=== PATIENT | female | born 1950 | race Caucasian/White ===

== ENCOUNTER 2016-10-06 12:57 | Emergency (ER) | payer BC ==
[2016-10-06 13:46] VITALS: BP 93/54
--- NOTE | 2016-10-06 14:04 | EDM.PDOC ---
ED HPI Trauma - General Chief Complaint: Lower Extremity Injury/Pain Stated Complaint: L knee swelling Time Seen by Provider: 10/06/16 13:50 Source: Reports: Patient, Family History Limitations: Reports: No limitations - History of Present Illness INITIAL COMMENTS - FREE TEXT/NARRATIVE: HISTORY AND PHYSICAL: History of present illness: [Patient is brought to the emergency room by her daughter today. She had left total knee replacement on October 01 at [facility] by Dr. Juan Redd. Was discharged from hospital on 10/02/16 per patient report. Prior to discharge she was told that she had a DVT just above her L medial knee, and was started on Eliquis. She felt that she had been doing well since discharge from the hospital until she developed increased pain to her L knee and increased swelling to her left lower leg. She reports that she has a half-dollar size wound to her left knee just lateral to her incision site. She does not know where this wound came from and it was not present when she went to the hospital on Friday. She reports that it has been present and oozing blood since her surgery. She denies any increased pain to her incision site or drainage from the site. She's been resting her knee is much as possible and taking her medications as prescribed. Overall she felt that she was improving until this morning when she began to feel worse. She denies fever and chills, chest pain shortness of breath and difficulty breathing. No abdominal pain nausea or vomiting. No cough. No other complaints or concerns. Review of systems: As per history of present illness and below otherwise all systems reviewed and negative. Past medical history: As per history of present illness and as reviewed below otherwise noncontributory. Surgical history: As per history of present illness and as reviewed below otherwise noncontributory. Social history: No reported history of drug or alcohol abuse. Family history: As per history of present illness and as reviewed below otherwise noncontributory. Physical exam: HEENT: Atraumatic, normocephalic. Oral mucous membranes are pink and moist, throat clear. neck supple, nontender. Lungs: Clear to auscultation, breath sounds equal bilaterally. Heart: S1S2, regular rate rhythm, no murmur, clicks, rubs. Abdomen: Soft, nondistended, nontender. Negative for masses or hepatosplenomegaly. Pelvis: Stable nontender. Genitourinary: Deferred. Rectal: Deferred. Extremities: Left knee incision site appears consistent with left total knee replacement. It is free from erythema and drainage. Has swelling to her lower leg. No tenderness with palpation to left calf posterior knee or lower leg. No pitting edema. Half-dollar size circular open wound to left lateral knee, just superior to incision. Mildly tender with palpation over her distal quadricep. Neurovascular unremarkable. Neuro: Awake, alert, oriented. Cranial nerves II through XII unremarkable. Exam nonfocal. Diagnostics: [CBC, CMP, venous Doppler ultrasound of left lower extremity, left knee x-ray, lactic acid, CRP, ESR, blood cultures, PT/INR] Therapeutics: [Bacitracin topical, ceftriaxone 1 g IM] Impression: [Left knee hematoma Left knee pain Status post left total knee replacement] Plan: [Left knee x-ray appears unremarkable. Venous Doppler ultrasound is negative for DVT. White count is normal CRP is mildly elevated and sedimentation rate is 40. Discussed patient's condition and lab results with Dr. Vazquez who is covering for Dr Juan Redd this weekend. He recommends stopping eloquence since no DVT is present, and states that symptoms are most consistent with the development of a hematoma. He does not feel that antibiotics are indicated at this time. Patient is instructed to call Dr. Redd tomorrow and notify him of ER visit and results. She's given 1 g of Rocephin IM in the ER. Wound is dressed with bacitracin and a fresh bandage. Rest, ice, elevation. She is in agreement with today's plan. All of her questions are answered and concerns are addressed. ] Definitive disposition and diagnosis as appropriate pending reevaluation and review of above. Allergies/ADRs: Allergies acetaminophen [From Percocet] Allergy (Verified 10/06/16 14:45) Vomiting clarithromycin [From Biaxin] Allergy (Verified 10/06/16 14:45) Vomiting oxycodone [From Percocet] Allergy (Verified 10/06/16 14:45) Vomiting propoxyphene [From Darvocet-N] Allergy (Verified 10/06/16 14:45) Vomiting Home Medications: Ambulatory Orders Aspirin 81 mg PO DAILY 10/06/16 [Confirmed 10/06/16] Bifidobacterium Infantis [Align] 10.5 mg PO DAILY 10/06/16 [Confirmed 10/06/16] Biotin 2,500 mcg PO BID 10/06/16 [Confirmed 10/06/16] Cholecalciferol (Vitamin D3) [Vitamin D3] 2,000 units PO BID 10/06/16 [ Confirmed 10/06/16] Clopidogrel [Plavix] 75 mg PO DAILY 10/06/16 [Confirmed 10/06/16] Cyanocobalamin (Vitamin B-12) [Vitamin B12] 2,500 mcg PO BID 10/06/16 [ Confirmed 10/06/16] Ferrous Sulfate 325 mg PO DAILY 10/06/16 [Confirmed 10/06/16] Fesoterodine Fumarate [Toviaz] 4 mg PO DAILY 10/06/16 [Confirmed 10/06/16] Folic Acid 0.8 mg PO DAILY 10/06/16 [Confirmed 10/06/16] Furosemide [Lasix] 20 mg PO DAILY 10/06/16 [Confirmed 10/06/16] Hydrocodone/Acetaminophen [Hydrocodon-Acetaminophen 5-325] 1 tab PO TID [Confirmed 10/06/16] Levothyroxine 112 mcg PO ACBREAKFAST 10/06/16 [Confirmed 10/06/16] [place] Carbonate 150 mg PO DAILY 10/06/16 [Confirmed 10/06/16] [place] Carbonate 300 mg PO BEDTIME 10/06/16 [Confirmed 10/06/16] Lutein 6 mg PO DAILY 10/06/16 [Confirmed 10/06/16] Multivit-Min/Folic Acid/Biotin [Women Multivit W-Biotin Gummy] 1 tab PO BID 03/16 [Confirmed 10/06/16] Omeprazole 40 mg PO BIDAC 10/06/16 [Confirmed 10/06/16] Oxybutynin [Oxybutynin ER] 5 mg PO DAILY 10/06/16 [Confirmed 10/06/16] PARoxetine HCl [Paroxetine ER] 25 mg PO DAILY 10/06/16 [Confirmed 10/06/16] Potassium Chloride 10 meq PO DAILY 10/06/16 [Confirmed 10/06/16] Pregabalin [Lyrica] 50 mg PO BID 10/06/16 [Confirmed 10/06/16] Temazepam 30 mg PO BEDTIME PRN 10/06/16 [Confirmed 10/06/16] Topiramate 50 mg PO DAILY 10/06/16 [Confirmed 10/06/16] lamoTRIgine [Lamotrigine] 100 mg PO BID 10/06/16 [Confirmed 10/06/16] risperiDONE [Risperidone] 0.5 mg PO BEDTIME 10/06/16 [Confirmed 10/06/16] Past Medical History Cardiovascular History: Reports: Pacemaker Genitourinary History: Reports: Other (see below) Other Genitourinary History: Chronic renal disease [employer] History: Reports: Psychiatric History: Reports: Bipolar Endocrine/Metabolic History: Reports: Hypothyroidism - Past Surgical History HEENT Surgical History: Reports: Adenoidectomy, Tonsillectomy GI Surgical History: Reports: Cholecystectomy, Other (see below) Other GI Surgeries/Procedures: gastric sx Female Surgical History: Reports: Other (see below) Other Female Surgeries/Procedures: bladder surgery Musculoskeletal Surgical History: Reports: Knee replacement Social & Family History - Family History Family Medical History: Noncontributory - Tobacco Use Smoking Status *Q: Never Smoker - Caffeine Use Caffeine Use: Reports: Tea - Recreational Drug Use Recreational Drug Use: No Review of Systems - Review of Systems Review Of Systems: ROS reveals no pertinent complaints other than HPI. Trauma Exam - Physical Exam Exam: See Below Course - Vital Signs Last Recorded V/S: Last Vital Signs Temp 98.8 F 10/06/16 13:44 Pulse 70 10/06/16 13:44 Resp 18 10/06/16 13:44 BP 93/54 L 10/06/16 13:44 Pulse Ox 100 10/06/16 13:44 - Orders/Labs/Meds Orders: Active Orders 24 hr Category Date Time Status Knee 3V Lt [CR] Stat Exams 10/06/16 14:11 Taken Venous Doppler Lwr Ext Lt [US] Stat Exams 10/06/16 14:10 Taken CULTURE BLOOD [BC] Stat Lab 10/06/16 14:24 Results CULTURE BLOOD [BC] Stat Lab 10/06/16 14:29 Received Blood Culture x2 Reflex Set [OM.PC] Stat Oth 10/06/16 14:11 Ordered Labs: Laboratory Tests 10/06/16 10/06/16 10/06/16 Range/Units 14:04 14:04 14:04 WBC 4.49 (4.0-11.0) K/uL RBC 2.79 L (4.30-5.90) M/uL Hgb 8.9 L (12.0-16.0) g/dL Hct 28.3 L (36.0-46.0) % MCV 101.4 H (80.0-98.0) fL MCH 31.9 (27.0-32.0) pg MCHC 31.4 (31.0-37.0) g/dL RDW Std Deviation 57.9 (28.0-62.0) fl RDW Coeff of Alyse 16 H (11.0-15.0) % Plt Count 158 (150-400) K/uL MPV 9.20 (7.40-12.00) fL Neut % (Auto) 71.5 (48.0-80.0) % Lymph % (Auto) 16.9 (16.0-40.0) % [place] % (Auto) 8.7 (0.0-15.0) % Eos % (Auto) 2.7 (0.0-7.0) % Baso % (Auto) 0.2 (0.0-1.5) % Neut # (Auto) 3.2 (1.4-5.7) K/uL Lymph # (Auto) 0.8 (0.6-2.4) K/uL [place] # (Auto) 0.4 (0.0-0.8) K/uL Eos # (Auto) 0.1 (0.0-0.7) K/uL Baso # (Auto) 0.0 (0.0-0.1) K/uL Nucleated RBC % 0.0 /100WBC Nucleated RBCs # 0 K/uL ESR 40 H (0-29) mm/hr INR (0.86-1.11) Lactate (0.20-2.00) mmol/L Sodium 141 (136-146) mmol/L Potassium 3.5 (3.5-5.1) mmol/L Chloride 111 H (98-110) mmol/L Carbon Dioxide 20 L (21-31) mmol/L BUN 39 H (6.0-23.0) mg/dL Creatinine 1.2 (0.6-1.5) mg/dL Est Cr Clr Drug Dosing 33.86 mL/min Estimated GFR (MDRD) 44.7 ml/min Glucose 67 (60-110) mg/dL Calcium 9.0 (8.8-10.8) mg/dL Total Bilirubin 0.4 (0.1-1.5) mg/dL AST 22 (5-40) IU/L ALT 10 (8-54) IU/L Alkaline Phosphatase 68 (40-150) C-Reactive Protein (0.0-0.5) mg/dL Total Protein 6.4 (6.0-8.0) g/dL Albumin 3.6 (3.4-4.8) g/dL Globulin 2.8 (2.0-3.5) g/dL Albumin/Globulin Ratio 1.3 (1.3-2.8) 10/06/16 10/06/16 10/06/16 Range/Units 14:04 14:04 14:04 WBC (4.0-11.0) K/uL RBC (4.30-5.90) M/uL Hgb (12.0-16.0) g/dL Hct (36.0-46.0) % MCV (80.0-98.0) fL MCH (27.0-32.0) pg MCHC (31.0-37.0) g/dL RDW Std Deviation (28.0-62.0) fl RDW Coeff of Alyse (11.0-15.0) % Plt Count (150-400) K/uL MPV (7.40-12.00) fL Neut % (Auto) (48.0-80.0) % Lymph % (Auto) (16.0-40.0) % [place] % (Auto) (0.0-15.0) % Eos % (Auto) (0.0-7.0) % Baso % (Auto) (0.0-1.5) % Neut # (Auto) (1.4-5.7) K/uL Lymph # (Auto) (0.6-2.4) K/uL [place] # (Auto) (0.0-0.8) K/uL Eos # (Auto) (0.0-0.7) K/uL Baso # (Auto) (0.0-0.1) K/uL Nucleated RBC % /100WBC Nucleated RBCs # K/uL ESR (0-29) mm/hr INR 0.98 (0.86-1.11) Lactate 1.2 (0.20-2.00) mmol/L Sodium (136-146) mmol/L Potassium (3.5-5.1) mmol/L Chloride (98-110) mmol/L Carbon Dioxide (21-31) mmol/L BUN (6.0-23.0) mg/dL Creatinine (0.6-1.5) mg/dL Est Cr Clr Drug Dosing mL/min Estimated GFR (MDRD) ml/min Glucose (60-110) mg/dL Calcium (8.8-10.8) mg/dL Total Bilirubin (0.1-1.5) mg/dL AST (5-40) IU/L ALT (8-54) IU/L Alkaline Phosphatase (40-150) C-Reactive Protein 1.86 H (0.0-0.5) mg/dL Total Protein (6.0-8.0) g/dL Albumin (3.4-4.8) g/dL Globulin (2.0-3.5) g/dL Albumin/Globulin Ratio (1.3-2.8) Meds: Medications Discontinued Medications Generic Name Dose Route Start Last Admin Trade Name Freq PRN Reason Stop Dose Admin Bacitracin 1 dose 10/06/16 16:21 10/06/16 16:34 Bacitracin Oint 1 Gm TOP 10/06/16 16:22 1 dose ONETIME ONE Administration Ceftriaxone Sodium 1,000 mg/ 4 mls @ 4 mls/sec 10/06/16 16:21 10/06/16 16:34 Lidocaine HCl IM 10/06/16 16:22 4 mls/sec ONETIME ONE Administration Departure - Departure Time of Disposition: 16:30 Disposition: Home, Self-Care 01 Condition: good Clinical Impression: Hematoma Left knee pain Qualifiers: Chronicity: acute Qualified Code(s): M25.562 - Pain in left knee Instructions: Knee Pain Referrals: PCP,None [Primary Care Provider] - Forms: ED Department Discharge Additional Instructions: The following information is given to patients seen in the emergency department who are being discharged to home. This information is to outline your options for follow-up care. We provide all patients seen in our emergency department with a follow-up referral. The need for follow-up, as well as the timing and circumstances, are variable depending upon the specifics of your emergency department visit. If you don't have a primary care physician on staff, we will provide you with a referral. We always advise you to contact your personal physician following an emergency department visit to inform them of the circumstance of the visit and for follow-up with them and/or the need for any referrals to a consulting specialist. The emergency department will also refer you to a specialist when appropriate. This referral assures that you have the opportunity for follow-up care with a specialist. All of these measure are taken in an effort to provide you with optimal care, which includes your follow-up. Under all circumstances we always encourage you to contact your private physician who remains a resource for coordinating your care. When calling for follow-up care, please make the office aware that this follow-up is from your recent emergency room visit. If for any reason you are refused follow-up, please contact the [facility] emergency department at and asked to speak to the emergency department charge nurse. Followup with Dr. Juan Redd at [facility] tomorrow. Let them know your lab results, that your left leg ultrasound is negative for DVT. You received 1 gram of Ceftriaxone in the ER. Stop Eliquis. Continue to rest ice and elevate your leg. Keep your incision and wound clean. Apply triple antibiotic ointment or bacitracin and a clean dressing twice daily. Return to ER as needed as discussed. - My Orders Last 24 Hours: My Active Orders 10/06/16 14:10 Venous Doppler Lwr Ext Lt [US] Stat 10/06/16 14:11 Knee 3V Lt [CR] Stat Blood Culture x2 Reflex Set [OM.PC] Stat 10/06/16 14:24 CULTURE BLOOD [BC] Stat 10/06/16 14:29 CULTURE BLOOD [BC] Stat - Assessment/Plan Last 24 Hours: My Active Orders 10/06/16 14:10 Venous Doppler Lwr Ext Lt [US] Stat 10/06/16 14:11 Knee 3V Lt [CR] Stat Blood Culture x2 Reflex Set [OM.PC] Stat 10/06/16 14:24 CULTURE BLOOD [BC] Stat 10/06/16 14:29 CULTURE BLOOD [BC] Stat
[2016-10-06] MEDS ORDERED: Bacitracin Oint 1 GM U/D Packet TOP ONE (16:21)
[2016-10-06] MEDS ORDERED: cefTRIAXone 1,000 MG in Lidocaine 1% 4 ML IM ONE (16:21)
--- NOTE | 2016-10-07 11:15 | CR ---
EXAM DATE: 10/06/16 PATIENT'S AGE: 66 Patient: OPAL HALE Facility: [place], [place] Site . Site : 1950 Study: XRay Knee Left [id number]/2017 2:46:31 PM Ordering Physician: Doctor Barakat Final Report: Indication: Pain/swelling, recent surgery. Findings: There is diffuse soft tissue swelling and there are changes of a total left knee arthroplasty with patellar resurfacing. Orthopedic components appear normally seated. The bones are demineralized. There is no fracture. Impression: 1. Diffuse soft tissue swelling and edema. 2. Changes of a total left knee arthroplasty. Dictated by Angy Crespo MD @ Oct 06 2016 3:24PM (Electronic Signature) Report Signed by Proxy and Original Signed Document filed in the Medical Record. MTDD
--- NOTE | 2016-10-07 11:16 | US ---
EXAM DATE: 10/06/16 PATIENT'S AGE: 66 Patient: OPAL HALE Facility: [place], [place] Site . Site : 1950 Study: US Extremity Left [id number]/9/2017 3:18:54 PM Ordering Physician: Doctor Barakat Final Report: INDICATION: Left leg pain and swelling. History of knee arthroplasty. TECHNIQUE: Ultrasound venous duplex lower left extremity. Compression venous exam was performed using johnson-scale, color Doppler, and spectral Doppler analysis. COMPARISON: None FINDINGS: Sonographic imaging demonstrates the left common femoral, deep femoral, superficial femoral, popliteal, posterior tibial and greater saphenous and the contralateral right common femoral veins to be fully compressible with normal color Doppler blood flow. Small amount of complex fluid superior and medially. IMPRESSION: Negative left lower extremity venous ultrasound for deep venous thrombosis. Small amount of subcutaneous fluid/hematoma. Dictated by Yady Quintero MD @ Oct 06 2016 3:44PM (Electronic Signature) Report Signed by Proxy and Original Signed Document filed in the Medical Record. MTDLeela
== END 2016-10-06 16:47 | disposition home or self-care (01) ==
LOC: MW.ED 12:57
DX: S80.02XA Contusion of left knee, initial encounter (principal); E03.9 Hypothyroidism, unspecified; Z88.5 Allergy status to narcotic agent; Z88.6 Allergy status to analgesic agent; Z88.8 Allergy status to other drugs, medicaments and biological substances; Z79.82 Long term (current) use of aspirin; Z79.899 Other long term (current) drug therapy; Z90.89 Acquired absence of other organs; Z96.652 Presence of left artificial knee joint; X58.XXXA Exposure to other specified factors, initial encounter
CPT/HCPCS: 36415; 73562; 80053; 83605; 85025; 85610; 85652; 86140; 87040; 93971; 99284; J0696